=== PATIENT | female | born 1970 | race African-American/Black ===

== ENCOUNTER → 2025-02-23 | Outpatient (CLI) | payer OTHER ==
--- NOTE | 2025-02-24 09:24 | HMCIMG ---
EXAM: CT Cardiac calcium scoring. CLINICAL HISTORY: CAD screening. TECHNIQUE: Thin collimated axial CT cardiac images were obtained. A CT scan is done according to ALARA (As Low As Reasonably Achievable). CONTRAST: None. COMPARISON: None provided. FINDINGS: Calcium Score: VESSEL Number of lesions Volume mm3 Equi. Mass/mg Calcium score LM 1 88.2 --.-- 108.3 LAD 6 79.6 --.-- 116.0 LCX 4 29.4 --.-- 48.0 RCA 3 42.4 --.-- 49.6 Total 14 239.6 --.-- 321.9 IMPRESSION: The calcium score is 321.9. This places the patient above 90th percentile in comparison to a group of patients asymptomatic for coronary artery disease with the same age and gender. This means that > 90% of females aged 55-59 have a calcium score that is lower than the patient's. /Esther
== END | disposition home or self-care (01) ==
LOC: RAH 12:56
PROVIDERS: ATTEND Internal Medicine Cardiovascular Disease
DX: Z13.6 Encounter for screening for cardiovascular disorders (principal); I25.10 Atherosclerotic heart disease of native coronary artery without angina pectoris
CPT/HCPCS: 75571